=== PATIENT | male | born 1990 ===

== ENCOUNTER 2023-12-04 11:21 | Outpatient (RCR) | payer OTHER, SELFPAY | END 2023-12-04 23:59 | disposition home or self-care (01) | LOC: RPT 11:21 | PROVIDERS: ATTENDING PHYSICIAN Specialist; FAMILY PHYSICIAN Student in an Organized Health Care Education/Training Program | DX: N32.81 Overactive bladder (principal); R35.0 Frequency of micturition | CPT/HCPCS: 97162; 97530 ==